=== PATIENT | male | born 1955 | race Caucasian/White ===

== ENCOUNTER 2021-12-08 12:59 | Day surgery (SDC) | payer MEDICARE, MEDICAID ==
[~2021-12-08] VITALS: Ht 179.1 cm; Wt 68.2 kg
[2021-12-08 13:10] VITALS: BP 146/92
[2021-12-08] MEDS ORDERED: QUET-1 PO (13:41)
[2021-12-08] MEDS ORDERED: OLANZAPINE PO (13:43)
[2021-12-08] MEDS ORDERED: PANT-47 PO (13:44)
[2021-12-08] MEDS ORDERED: PRAZ1CAP5 PO (13:46)
[2021-12-08] MEDS ORDERED: MIDAZolam 1 MG/ML 5ML VIAL ONE (13:47)
[2021-12-08] MEDS ORDERED: LAMO200T2 PO (13:47)
[2021-12-08] MEDS ORDERED: fentaNYL/PF 50MCG/1 ML 2ML syringe ONE (13:47)
[2021-12-08] MEDS ORDERED: GABA600T13 PO (13:48)
[2021-12-08] MEDS ORDERED: DOCU100C40 PO (13:50)
[2021-12-08] MEDS ORDERED: VENLAFAXINE PO ×2 (13:50→13:52)
[2021-12-08] MEDS ORDERED: MORP30TA PO (13:52)
[2021-12-08] MEDS ORDERED: HYDROCODONE PO (13:54)
[2021-12-08 14:30] VITALS: BP 122/85
[2021-12-08 14:40] VITALS: BP 157/96
[2021-12-08 14:50] VITALS: BP 154/101
[2021-12-08 15:00] VITALS: BP 157/99
[2021-12-08 15:10] VITALS: BP 140/96
== END 2021-12-08 15:29 | disposition home or self-care (01) ==
LOC: GI LAB 12:59
PROVIDERS: ATTEND Internal Medicine Gastroenterology
DX: R19.5 Other fecal abnormalities (principal); K92.1 Melena; K64.8 Other hemorrhoids; K63.89 Other specified diseases of intestine; D12.5 Benign neoplasm of sigmoid colon; F17.210 Nicotine dependence, cigarettes, uncomplicated
CPT/HCPCS: 45385; 99153; C1773; G0500; J2250; J3010; J7040; Z7512; 88305; 99152; A4620

== ENCOUNTER 2023-06-10 05:55 | Day surgery (SDC) | payer MEDICARE, MEDICAID ==
[2023-06-09 11:38] LABS: BASOPHILS # (AUTO) 0.1 X10'3 (0-0.2); BASOPHILS % (AUTO) 0.4 % (0-1); EOSINOPHILS # (AUTO) 0.3 X10'3 (0-0.9); EOSINOPHILS % (AUTO) 2.3 % (0-6); HEMATOCRIT 36.3 % (42.0-52.0); HEMOGLOBIN 11.6 g/dl (14.0-17.9); LYMPHOCYTES # (AUTO) 1.6 X10'3 (1.1-4.8); LYMPHOCYTES % (AUTO) 11.8 % (21-51); MEAN CORPUSCULAR HEMOGLOBIN 28.8 PG (27.0-31.0); MEAN CORPUSCULAR HGB CONC 31.8 g/dL (33.0-36.5); MEAN CORPUSCULAR VOLUME 90.6 FL (78-98); MEAN PLATELET VOLUME 6.9 FL (7.4-10.4); MONOCYTES # (AUTO) 1.1 X10'3 (0-0.9); MONOCYTES % (AUTO) 8.5 % (2-12); NEUTROPHILS # (AUTO) 10.4 X10'3 (1.8-7.7); PLATELET COUNT 431 X10'3 (140-440); RED BLOOD COUNT 4.01 X10'6 (4.70-6.10); RED CELL DISTRIBUTION WIDTH 14.3 % (11.5-14.5); WHITE BLOOD COUNT 13.5 X10'3 (4.5-11.0)
[2023-06-09 11:47] LABS: ALBUMIN 3.5 G/DL (3.4-5.0); ANION GAP 5 (8-16); BLOOD UREA NITROGEN 21 MG/DL (7-18); BUN/CREATININE RATIO 14.5 (10.0-20.0); CALCIUM 8.7 MG/DL (8.5-10.1); CHLORIDE 105 MMOL/L (99-107); CREATININE 1.45 MG/DL (0.60-1.10); POTASSIUM 3.6 MMOL/L (3.5-5.1); SODIUM 140 MMOL/L (135-145); TOTAL CARBON DIOXIDE 29.6 MMOL/L (24-32); eGFR 48 ML/MIN
[2023-06-09 11:49] LABS: APTT 25 SECONDS (22-32); PROTHROMBIN TIME 10.3 SECONDS (9.0-12.0)
[2023-06-09 11:50] LABS: GLUCOSE 95 MG/DL (70-104)
[2023-06-10] VITALS (11 sets, daily range): BP systolic 105–145; BP diastolic 51–78; PULSE 74–84; RESP 11–19; TEMP 98.3; O2SAT 96–99
[~2023-06-10] VITALS: Ht 177.8 cm; Wt 60.6 kg
[~2023-06-10 05:55] MED LIST: DOCU100C40 PO; GABA600T13 PO; HYDROCODONE PO; LAMO200T2 PO; MORP30TA PO; OLANZAPINE PO; PANT-47 PO; PRAZ1CAP5 PO; QUET-1 PO; VENLAFAXINE PO
[2023-06-10] MEDS ORDERED: LORazepam 0.5 MG tablet PO PRN (06:25)
[2023-06-10] MEDS ORDERED: diphenhydrAMINE 25mg capsule PO PRN (06:25)
[2023-06-10] MEDS ORDERED: normal saline 1,000 ML IV SCH (06:25)
[2023-06-10] MEDS ORDERED: sodium bicarbonate 1meq/ml syr 150 ML in dextrose 5%-water 1,000 ML IV SCH (06:40)
[2023-06-10] MEDS ORDERED: acetylcysteine 200 MG/ml 4ml vial PO ONE (06:55)
[2023-06-10] MEDS ORDERED: verapamil 2.5 mg/ml inj IV ONE (07:12)
[2023-06-10] MEDS ORDERED: midazolam 1 mg/ML 2ml injection ONE (07:12)
[2023-06-10] MEDS ORDERED: fentaNYL/PF 50MCG/1 ML 2ML syringe ONE (07:12)
[2023-06-10] MEDS ORDERED: LIDOcaine 1% (10mg/ml) 2ml vial ONE (07:12)
[2023-06-10] MEDS ORDERED: iohexol 350 MG/ML 50ML vial IV ONE (07:13)
[2023-06-10] MEDS ORDERED: heparin 1,000unit/ml 10ml vial 10 ML ONE (07:13)
[2023-06-10] MEDS ORDERED: iohexol 350MG/ML 100ml bottle IV ONE (07:13)
[2023-06-10] MEDS ORDERED: nitroGLYCERIN 500mcg/5mL D5W 5 ML IV ONE (07:13)
[2023-06-10] MEDS ORDERED: HYDR-3973 PO (07:36)
[2023-06-10] MEDS ORDERED: LAMO200T10 PO (07:36)
[2023-06-10] MEDS ORDERED: ASPI-1397 PO (07:36)
[2023-06-10] MEDS ORDERED: CLOP75TA34 PO (07:36)
[2023-06-10] MEDS ORDERED: ATOR40TA72 (07:36)
[2023-06-10] MEDS ORDERED: FURO40TA4 PO (07:36)
[2023-06-10] MEDS ORDERED: LISI5TAB22 (07:39)
[2023-06-10] MEDS ORDERED: METO-395 PO (07:39)
[2023-06-10] MEDS ORDERED: FOLI0.4T6 PO (07:39)
[2023-06-10] MEDS ORDERED: VENL225T3 PO (07:39)
[2023-06-10] MEDS ORDERED: HYDROcodone/acetaminophen 5mg/325mg tablet PO PRN (09:50)
[2023-06-10] MEDS ORDERED: HYDROcodone/acetaminophen 10/325mg tab PO PRN (09:50)
[2023-06-10 11:22] LABS: ISTAT HGB MIX 10.9 g/dl (14.0-17.9); ISTAT Hct MIX 32 %PCV (42-52); ISTAT O2 SATURATION MIX VENOUS 59 % (60-80); ISTAT SOURCE VEN
[2023-06-10] MEDS ORDERED: ACETYLCYSTEINE 200 MG/1 ML 4 ML ORAL SOLUTION PO SCH (14:35)
== END 2023-06-10 15:00 | disposition home or self-care (01) ==
LOC: SSTAY O 05:55
PROVIDERS: ATTEND Internal Medicine Cardiovascular Disease
DX: I11.0 Hypertensive heart disease with heart failure (principal); I50.21 Acute systolic (congestive) heart failure; E78.5 Hyperlipidemia, unspecified; I42.9 Cardiomyopathy, unspecified; R06.02 Shortness of breath; R53.83 Other fatigue; R42 Dizziness and giddiness; Z79.891 Long term (current) use of opiate analgesic; Z79.899 Other long term (current) drug therapy; Z98.890 Other specified postprocedural states
CPT/HCPCS: 36415; 80048; 82803; 85014; 85025; 85610; 85730; 93005; 93460; 99152; 99153; J1644; J2250; J3010; J3490; J7030; J7070; Q0163; Q9967; 76937; A4615; A6258; A6402; C1725; C1751; C1894

== ENCOUNTER 2024-07-17 05:39 | Day surgery (SDC) | payer MEDICARE, MEDICAID ==
[2024-07-12 14:24] LABS: BASOPHILS # (AUTO) 0.1 X10'3 (0-0.2); EOSINOPHILS # (AUTO) 0.4 X10'3 (0-0.9); EOSINOPHILS % (AUTO) 4.8 % (0-6); LYMPHOCYTES # (AUTO) 1.9 X10'3 (1.1-4.8); MEAN CORPUSCULAR HEMOGLOBIN 29.1 PG (27.0-31.0); MEAN CORPUSCULAR HGB CONC 32.8 g/dL (33.0-36.5); MEAN PLATELET VOLUME 7.4 FL (7.4-10.4); MONOCYTES # (AUTO) 0.6 X10'3 (0-0.9); MONOCYTES % (AUTO) 8.2 % (2-12); NEUTROPHILS # (AUTO) 4.9 X10'3 (1.8-7.7); PRE OP HEMATOCRIT 35.7 % (42.0-52.0); PRE OP HEMOGLOBIN 11.7 g/dL (14.0-17.9); PRE OP PLATELET COUNT 359 X10'3 (140-440); PRE OP WHITE BLOOD COUNT 7.9 10'3 (4.8-10.8); RED BLOOD COUNT 4.02 X10'6 (4.70-6.10); RED CELL DISTRIBUTION WIDTH 13.7 % (11.5-14.5)
[2024-07-12 14:49] LABS: ALBUMIN 3.7 G/DL (3.4-5.0); ALBUMIN/GLOBULIN RATIO 0.9 (1.1-1.5); ALKALINE PHOSPHATASE 153 IU/L (46-116); BLOOD UREA NITROGEN 28 MG/DL (7-18); BUN/CREATININE RATIO 14.4 (10.0-20.0); CALCIUM 8.8 MG/DL (8.5-10.1); CHLORIDE 103 MMOL/L (99-107); CREATININE 1.95 MG/DL (0.60-1.10); PRE OP ALT 36 U/L (30-65); PRE OP ANION GAP 5 (8-16); PRE OP AST 34 U/L (10-37); PRE OP BILIRUB, TOTAL 0.4 MG/DL (0.0-1.0); PRE OP POTASSIUM 4.1 MMOL/L (3.4-5.1); PRE OP SODIUM 139 MMOL/L (135-145); TOTAL CARBON DIOXIDE 30.8 MMOL/L (24-32); TOTAL PROTEIN 7.8 G/DL (6.4-8.2); eGFR 34 ML/MIN
[2024-07-12 14:51] LABS: PRE OP GLUCOSE 139 MG/DL (70-104)
[2024-07-16] MEDS: DOCUMENT DATE & TIME OF BETA-BLOCKER PO ONE (05:30)
[~2024-07-17] VITALS: Ht 175.3 cm; Wt 59.0 kg
[2024-07-17] MEDS: ceFAZolin 2gm in dextrose, iso 50 ML IV ONE (05:30)
[~2024-07-17 05:39] MED LIST changes: +AMLO2.5T2 PO; +ASCO500C17 PO; +ASPI-1397 PO; +ATOR-2 PO; +BUPR600F2 PO; +CALC300T4 PO; +CHOL20002 PO; +CLOP75TA34 PO; +DAPA10TA PO; +DOCU-148 PO; -DOCU100C40 PO; +FERR-29 PO; +FOLI0.4T6 PO; +GABA-1405 PO; -GABA600T13 PO; -HYDROCODONE PO; +LAMO200T10 PO; -LAMO200T2 PO; +LIDOcaine 1% 30ml preserv. free vial ONE; +LOSA25TA41 PO; +METO-395 PO; -MORP30TA PO; +MULT-1085 PO; -OLANZAPINE PO; -PRAZ1CAP5 PO; -QUET-1 PO; +QUET25TA36 PO; +SPIR25TA5 PO; +VENL225T3 PO; -VENLAFAXINE PO; +VITA-268 PO; +VITE400C PO
[2024-07-17 05:45] VITALS: BP 144/83; PULSE 76; RESP 16; TEMP 97.6; O2SAT 97
[2024-07-17] MEDS ORDERED: LIDOcaine 2% (20mg/ml) 5ml vial ONE (06:42)
[2024-07-17] MEDS ORDERED: BUPIVAcaine/PF 2.5mg/ml (0.25%) 10ml vial ONE (06:43)
[2024-07-17] MEDS: ringers solution, lacted 1,000 ML IV SCH (06:47)
[2024-07-17] MEDS: famotidine 20mg tablet PO ONE (06:47)
[2024-07-17] MEDS ORDERED: morphine 4 MG/ML inj SYRINge IV PRN (07:45)
[2024-07-17] MEDS ORDERED: morphine 2 MG/ML inj. syringe IV PRN (07:45)
[2024-07-17] MEDS ORDERED: ondansetron/PF 4mg/2ml inj IV PRN (07:45)
[2024-07-17] MEDS ORDERED: ringers solution, lacted 1,000 ML IV SCH (07:45)
[2024-07-17] MEDS ORDERED: hydrALAZINE 20mg/ml inj. IV PRN (07:45)
[2024-07-17] MEDS ORDERED: enalaprilat dihydrate 2.5mg/2ml vial IV PRN (07:45)
[2024-07-17] MEDS ORDERED: fentaNYL/PF 50MCG/1 ML 2ML syringe ONE (07:54)
[2024-07-17] MEDS ORDERED: midazolam 1 mg/ML 2ml injection ONE (07:55)
[2024-07-17] MEDS ORDERED: propofol inj 20 ML IV ONE (07:57)
[2024-07-17] MEDS: LIDOcaine 2% (20mg/ml) 5ml vial SQ ONE (08:14)
[2024-07-17 08:22] VITALS: BP 119/60; PULSE 69; RESP 16; O2SAT 100
[2024-07-17 08:30] VITALS: BP 124/80; PULSE 75; RESP 13; O2SAT 100
[2024-07-17 08:40] VITALS: BP 134/82; PULSE 70; RESP 18; O2SAT 100
[2024-07-17 08:50] VITALS: BP 142/76; PULSE 75; RESP 11; O2SAT 98
== END 2024-07-17 08:52 | disposition home or self-care (01) ==
LOC: PAS 05:39
PROVIDERS: ATTEND Orthopaedic Surgery Hand Surgery
DX: G56.01 Carpal tunnel syndrome, right upper limb (principal); I13.0 Hypertensive heart and chronic kidney disease with heart failure and stage 1 through stage 4 chronic kidney disease, or unspecified chronic kidney disease; N18.30 Chronic kidney disease, stage 3 unspecified; I50.9 Heart failure, unspecified; F31.9 Bipolar disorder, unspecified; K21.9 Gastro-esophageal reflux disease without esophagitis; Z86.73 Personal history of transient ischemic attack (TIA), and cerebral infarction without residual deficits; Z79.02 Long term (current) use of antithrombotics/antiplatelets; Z79.82 Long term (current) use of aspirin; Z79.899 Other long term (current) drug therapy; Z98.890 Other specified postprocedural states
CPT/HCPCS: 36415; 64721; 80053; 82948; 85025; A4215; A6449; J0665; J0690; J2003; J2250; J2704; J3010; J3490; J7030; J7120; Z7506; Z7512; Z7610

== ENCOUNTER 2025-06-04 08:22 | Outpatient (CLI) | payer MEDICARE, MEDICAID ==
[~2025-06-04 08:22] MED LIST changes: -LIDOcaine 1% 30ml preserv. free vial ONE
--- NOTE | 2025-06-04 10:37 | RADIOLOGY REPORT ---
CLINICAL INFORMATION: SHOULDER IMPINGEMENT. TECHNIQUE: Multisequence multiplanar MRI images of the right shoulder were obtained without contrast. COMPARISON: None FINDINGS: Acromioclavicular joint: There is mild acromioclavicular hypertrophy and mild edema. There is Type 2 acromion. Small amount of fluid in the subacromial / subdeltoid bursa. Rotator cuff tendons: Mild tendinosis of the distal supraspinatus and infraspinatus tendons. There is mild articular surface fraying just proximal to their insertions. There is also mild bursal surface fraying. Mild tendinosis of the subscapularis tendon with mild articular surface fraying involving the cephalad fibers just proximal to its insertion. Teres minor tendon is intact and otherwise unremarkable. Biceps tendon: Mild tendinosis of the proximal long head biceps tendon along its intra-articular course. No tear visualized. Labrum: Fraying of the superior labrum. Fraying and degeneration at the inferior labrum, which appears heterogeneous and indistinct, with adjacent deformity at the inferior glenoid. Bones: No fracture or focal marrow contusion. Moderate arthritic changes at the glenohumeral joint. There is chronic deformity at the inferior glenoid. Muscles: Mild fatty changes in the subscapularis muscle. Other: Motion artifact limits evaluation. IMPRESSION: 1. Rotator cuff tendinosis with areas of bursal surface and articular surface fraying in the distal supraspinatus, infraspinatus, and subscapularis tendons. No full-thickness or near full-thickness rotator cuff tear. 2. Mild acromioclavicular hypertrophy with mild subacromial / subdeltoid bursitis. 3. Mild tendinosis of the proximal long head biceps tendon. 4. Fraying of the superior labrum. Fraying and degeneration at the inferior labrum. 5. Arthritic changes and chronic findings as described above.
--- NOTE | 2025-06-04 10:52 | RADIOLOGY REPORT ---
CLINICAL INFORMATION: CERVICAL RADICULOPATHY. TECHNIQUE: Multisequence multiplanar MRI images of the cervical spine were obtained without contrast. COMPARISON: None FINDINGS: Bones: Postsurgical changes of posterior spinal fusion extending from C3 through C6 with associated artifact which limits evaluation of adjacent structures. Straightening of the normal cervical lordosis. Minimal anterolisthesis of C4 on C5. Vertebral body heights are maintained. Posterior elements are intact. No acute fracture. No focal suspicious marrow signal abnormality. There is osseous fusion across the C5-C6 disc space. Spinal cord: Spinal cord is normal in signal intensity and morphology. Paraspinal soft tissues: Paraspinal and prevertebral soft tissues are unremarkable. Other: Examination is limited due to motion artifact and signal loss artifact. There is prominent artifact on the axial images, likely due to the surgical hardware, which severely limits evaluation at some levels. There is prominent T2 hypointense signal along the dorsal aspect of the odontoid process, may be seen with hydroxyapatite deposition disease. Cervical disc levels: C2-C3: Disc desiccation. Mild disc bulge mildly flattening the ventral aspect of the thecal sac. There is a mild degree of congenital spinal canal narrowing. Facet and uncinate hypertrophy with moderate left and [id number] right neural foraminal stenoses. C3-C4: Disc desiccation with diffuse disc bulge mildly indenting the ventral aspect of the thecal sac. Moderate congenital spinal canal stenosis. Facet and uncinate hypertrophy with likely moderate bilateral neural foraminal stenoses. Prominent artifact on the axial images at this level limits evaluation. C4-C5: Disc desiccation. There is diffuse disc bulge mildly flattening the ventral aspect of the thecal sac, superimposed on congenital spinal canal narrowing with moderate spinal canal stenosis. C5-C6: There is near complete osseous fusion across the C5-C6 disc space. There is moderate congenital spinal canal narrowing. Facet and uncinate hypertrophy with mild to moderate bilateral neural foraminal stenoses. C6-C7: Disc desiccation. Mild disc bulge mildly indenting of the ventral aspect of the thecal sac, with concomitant congenital spinal canal narrowing contributing to moderate spinal canal stenosis and partial effacement of the lateral recesses. Facet and uncinate hypertrophy with moderate left and mild right neural foraminal stenoses. C7-T1: Disc desiccation. Diffuse disc bulge and congenital spinal canal narrowing contributes to [id number] spinal canal stenosis. Facet and uncinate hypertrophy with moderate bilateral neural foraminal stenoses. IMPRESSION: 1. Limited examination due to artifact, including motion artifact, signal loss artifact, and metallic susceptibility artifact from the surgical hardware. 2. Degenerative disc disease and facet/ uncinate disease in the cervical spine with associated spinal canal and neural foraminal stenoses as detailed above. 3. There is congenital spinal canal narrowing contributing to the spinal canal stenoses. 4. Postsurgical changes as described above. 5. No signal abnormality identified in the spinal cord to suggest myelopathy. 6. Additional findings as detailed above.
== END 2025-06-04 23:59 | disposition home or self-care (01) ==
LOC: MRI02 08:22
PROVIDERS: ATTEND Student in an Organized Health Care Education/Training Program
DX: M75.121 Complete rotator cuff tear or rupture of right shoulder, not specified as traumatic (principal); M50.13 Cervical disc disorder with radiculopathy, cervicothoracic region; M25.819 Other specified joint disorders, unspecified shoulder; M48.03 Spinal stenosis, cervicothoracic region; M43.22 Fusion of spine, cervical region; M47.23 Other spondylosis with radiculopathy, cervicothoracic region; M75.101 Unspecified rotator cuff tear or rupture of right shoulder, not specified as traumatic; M89.311 Hypertrophy of bone, right shoulder
CPT/HCPCS: 72141; 73221